=== PATIENT | male | born 1960 | race Caucasian/White ===

== ENCOUNTER 2017-11-02 06:02 | Day surgery (SDC) | payer OTHER ==
[~2017-11-02] VITALS: Ht 190.5 cm; Wt 95.3 kg
[2017-11-02] MEDS ORDERED: HYTRIN (06:24)
[2017-11-02] MEDS ORDERED: BENTYL (06:25)
[2017-11-02] MEDS ORDERED: ZANTAC (06:25)
[2017-11-02] MEDS ORDERED: FLOMAX (06:25)
[2017-11-02] MEDS ORDERED: LOPID600 MG PO (06:30)
[2017-11-02] MEDS ORDERED: TAMSULOSIN0.4 MG PO (06:30)
[2017-11-02] MEDS ORDERED: [UNRECOGNIZED DRUG - OTHER] (06:34)
[2017-11-02 09:22] VITALS: BP 137/78
== END 2017-11-02 09:45 | DRG 352 ==
LOC: ORM 06:02
PROVIDERS: ATTEND Surgery
PROC: 0YU60JZ Supplement Left Inguinal Region with Synthetic Substitute, Open Approach (ICD-10-PCS; principal; 2017-11-02)
DX: K40.30 Unilateral inguinal hernia, with obstruction, without gangrene, not specified as recurrent (principal)
CPT/HCPCS: J2710